=== PATIENT | male | born 1960 | race Caucasian/White ===

== ENCOUNTER → 2021-10-31 | Day surgery (SDC) | payer BC ==
[~2021-10-31] MED LIST: CLONAZEPAM1 MG PO; FENTANYL CITRATE/PF 100MCG/2 ML INJ ONE; LISINOPRIL-HCT1 EACH PO; MIDAZOLAM HCL 2 MG/2 ML VIAL ONE; MULTI-VITAMIN1 EACH PO; PROPOFOL IV EMULSION 10 MG/ML 20 ML VIAL ONE; VITAMIN C1000 MG PO; VITAMIN D310 MCG PO; ZINC PO; ZOLOFT100 MG PO
[2021-10-31 13:35] VITALS: BP 122/80
== END | disposition home or self-care (01) ==
LOC: OR 11:10
PROVIDERS: ATTEND Internal Medicine Gastroenterology
DX: Z12.11 Encounter for screening for malignant neoplasm of colon (principal); D12.2 Benign neoplasm of ascending colon; D12.3 Benign neoplasm of transverse colon; D12.4 Benign neoplasm of descending colon; K59.00 Constipation, unspecified; K64.8 Other hemorrhoids; G47.33 Obstructive sleep apnea (adult) (pediatric); I10 Essential (primary) hypertension; Z01.810 Encounter for preprocedural cardiovascular examination; Z01.812 Encounter for preprocedural laboratory examination; Z20.822 Contact with and (suspected) exposure to COVID-19; Z86.19 Personal history of other infectious and parasitic diseases
CPT/HCPCS: 45380; 45384; 45385; 93005; J2250; J2704; J3010; U0002; 45378

== ENCOUNTER 2024-04-28 13:20 | Emergency (ER) | payer BC ==
[~2024-04-28] VITALS: Ht 188 cm; Wt 127.0 kg
[~2024-04-28 13:20] MED LIST changes: -FENTANYL CITRATE/PF 100MCG/2 ML INJ ONE; +LOSARTAN POTASS25 MG PO; -MIDAZOLAM HCL 2 MG/2 ML VIAL ONE; +NIACIN ER500 MG PO; -PROPOFOL IV EMULSION 10 MG/ML 20 ML VIAL ONE
[2024-04-28 14:23] VITALS: PULSE 95; RESP 18
[2024-04-28] MEDS: ALBUTEROL/IPRATROPIUM 3 ML NEB NEB ONE (14:23)
[2024-04-28] MEDS: METHYLPREDNISOLONE SOD SUCC 125 MG/2ML VIAL IV ONE (14:23)
[2024-04-28] MEDS: SODIUM CHLORIDE 0.9% 1000ML 1,000 ML IV STA (14:24)
[2024-04-28] MEDS: KETOROLAC TROMETHAMINE 30 MG/ML VIAL IV STA (14:50)
[2024-04-28] MEDS ORDERED: KETOROLAC TROMETHAMINE 30 MG/ML VIAL ONE (14:52)
[2024-04-28] MEDS ORDERED: CEFDINIR300 MG PO (16:21)
[2024-04-28] MEDS ORDERED: VENTOLIN HFA18 GM INH (16:22)
[2024-04-28 16:24] VITALS: PULSE 83; RESP 20; TEMP 98; O2SAT 95
[2024-04-28] MEDS ORDERED: PREDNISONE20 MG PO (16:24)
== END 2024-04-28 16:35 | disposition home or self-care (01) ==
LOC: FSED 13:22
DX: J20.9 Acute bronchitis, unspecified (principal); H66.91 Otitis media, unspecified, right ear; D75.1 Secondary polycythemia; I10 Essential (primary) hypertension; E66.01 Morbid (severe) obesity due to excess calories; Z68.35 Body mass index [BMI] 35.0-35.9, adult
CPT/HCPCS: 0223U; 71250; 80048; 80076; 82553; 83880; 84484; 85025; 87400; 87420; 93005; 99284; J0696; J1885; J2919; J7030